=== PATIENT | male | born 1960 | race Caucasian/White ===

== ENCOUNTER 2021-07-17 10:49 | Emergency (ER) | payer MEDICAID ==
[~2021-07-17] VITALS: Ht 200.7 cm; Wt 104.5 kg
[2021-07-17 11:28] VITALS: BP 132/94
[2021-07-17] MEDS ORDERED: DEXA6TAB6 PO (13:24)
[2021-07-17] MEDS ORDERED: IVER3TAB2 PO (13:33)
[2021-07-17] MEDS ORDERED: AZIT-31 PO (13:33)
== END 2021-07-17 13:20 | disposition home or self-care (01) ==
LOC: ER 10:50
DX: U07.1 COVID-19 (principal); R06.02 Shortness of breath; R05 Cough; R09.89 Other specified symptoms and signs involving the circulatory and respiratory systems; Z79.899 Other long term (current) drug therapy
CPT/HCPCS: 71045; 87635; 99284; C9803

== ENCOUNTER 2022-05-20 09:59 | Inpatient (IN) | payer MEDICAID ==
[~2022-05-20] VITALS: Ht 185.4 cm; Wt 96.6 kg
[~2022-05-20 09:59] MED LIST: DEXA6TAB6 PO; IVER3TAB2 PO
[2022-05-20] MEDS ORDERED: diltiazem 5mg/ml 5ml inj. IV ONE (10:25)
--- NOTE | 2022-05-20 10:50 | NUR ---
5mg of 20mg dose of cardizem given, patient had blood pressure change from SBP of 105 to 98. MD made aware, discussed slow administration of cardizem and hold off on drip. Fluids not ordered due to pt known EF of 2% and 500mL already given [employer]ER.
[2022-05-20 11:13] LABS: BASOPHILS % (AUTO) 0.2 % (0-1); EOSINOPHILS % (AUTO) 0 % (0-6); HEMOGLOBIN 13.2 g/dl (14.0-17.9); LYMPHOCYTES % (AUTO) 4.8 % (21-51); MEAN CORPUSCULAR HEMOGLOBIN 30.2 PG (27.0-31.0); MEAN CORPUSCULAR HGB CONC 33.8 g/dL (33.0-36.5); MEAN CORPUSCULAR VOLUME 89.4 FL (78-98); MEAN PLATELET VOLUME 9.1 FL (7.4-10.4); MONOCYTES # (AUTO) 1.3 X10'3 (0-0.9); MONOCYTES % (AUTO) 6.3 % (2-12); NEUTROPHILS # (AUTO) 18.5 X10'3 (1.8-7.7); NEUTROPHILS % (AUTO) 88.7 % (42-75); PLATELET COUNT 302 X10'3 (140-440); RED BLOOD COUNT 4.36 X10'6 (4.70-6.10); RED CELL DISTRIBUTION WIDTH 13.1 % (11.5-14.5); WHITE BLOOD COUNT 20.9 X10'3 (4.5-11.0)
[2022-05-20 11:30] LABS: ALANINE AMINOTRANSFERASE 13 U/L (12-78); ALBUMIN 2.4 G/DL (3.4-5.0); ALBUMIN/GLOBULIN RATIO 0.4 (1.1-1.5); ALKALINE PHOSPHATASE 66 IU/L (46-116); ANION GAP 10 (8-16); ASPARTATE AMINO TRANSFERASE 13 U/L (10-37); BILIRUBIN,TOTAL 1.1 MG/DL (0.1-1.0); BLOOD UREA NITROGEN 27 MG/DL (7-18); BUN/CREATININE RATIO 16.4 (5.4-32.0); CALCIUM 8.2 MG/DL (8.5-10.1); CHLORIDE 97 MMOL/L (99-107); CREATININE 1.65 MG/DL (0.60-1.10); GLUCOSE 249 MG/DL (70-104); POTASSIUM 4.1 MMOL/L (3.5-5.1); SODIUM 133 MMOL/L (135-145); TOTAL CARBON DIOXIDE 25.6 MMOL/L (24-32); TOTAL PROTEIN 7.8 G/DL (6.4-8.2); eGFR 43 ML/MIN
[2022-05-20] MEDS: diltiazem-NS 100mg/100ml 100 ML IV SCH (12:10)
[2022-05-20] MEDS ORDERED: ondansetron/PF 4mg/2ml inj IV PRN (16:00)
[2022-05-20] MEDS ORDERED: potassium CL 10mEq/100ml bag 100 ML IV PRN (16:00)
[2022-05-20] MEDS ORDERED: mag hydrox/Alum hydrox/simeth 30ml oral suspension PO PRN (16:00)
[2022-05-20] MEDS ORDERED: magnesium 2GM in 50ml NS 50 ML IV PRN (16:00)
[2022-05-20] MEDS ORDERED: amiodarone 150mg/dext, iso-os 100 ML IV ONE (16:00)
[2022-05-20] MEDS ORDERED: magnesium 4gm in 100ml NS 100 ML IV PRN (16:00)
[2022-05-20] MEDS ORDERED: acetaminophen 325mg tablet PO PRN (16:00)
[2022-05-20] MEDS ORDERED: POTASSIUM BICARB 20meq eff tab 20 MEQ TABLET.EFF PO PRN ×2 (16:00)
[2022-05-20] MEDS ORDERED: magnesium hydroxide 30ml (MOM) UD suspension PO PRN (16:00)
[2022-05-20] MEDS ORDERED: magnesium Cl slow-release 64mg tablet PO PRN (16:00)
[2022-05-20 16:44] LABS: POTASSIUM 3.9 MMOL/L (3.5-5.1)
[2022-05-20 16:54] LABS: CLARITY,URINE CLEAR (Clear); COLOR,URINE YELLOW (Yellow); GLUCOSE, URINE 100 mg/dl (Neg); KETONES,URINE NEGATIVE (Neg); LEUKOCYTE ESTERASE ,URINE NEGATIVE (Neg); NITRITES, URINE NEGATIVE (Neg); OCCULT BLOOD,URINE NEGATIVE (Neg); PROTEIN,URINE NEGATIVE (Neg)
[2022-05-20 17:00] LABS: UA COLLECTION TYPE URINAL
[2022-05-20 17:03] LABS: URINE AMPHETAMINE SCREEN POSITIVE (Neg); URINE BARBITUATE SCREEN NEGATIVE (Neg); URINE BENZODIAZEPINES SCREEN NEGATIVE (Neg); URINE CANNABINOID SCREEN POSITIVE (Neg); URINE COCAINE SCREEN NEGATIVE (Neg); URINE METHADONE SCREEN NEGATIVE (Neg); URINE OPIATE SCREEN NEGATIVE (Neg); URINE PHENCYCLIDINE SCREEN NEGATIVE (Neg)
[2022-05-20] MEDS ORDERED: enoxaparin 30mg/0.3ml syringe SQ SCH ×2 (17:25→20:00)
[2022-05-20] MEDS ORDERED: PERFLUTREN PROTEIN-A MICROSPHR (Optison) 0.22 MG/ML 3ML VIAL IV ONE (17:30)
[2022-05-20] MEDS: docusate sod 100mg capsule PO SCH (20:00)
[2022-05-20] MEDS: K and/or MAG REPLACEMENT MC SCH (20:05)
[2022-05-20] MEDS: enoxaparin 100mg/ml syringe SQ SCH (20:33)
[2022-05-20] MEDS: carvedilol 6.25mg tablet PO SCH (20:48)
[2022-05-20] MEDS: furosemide 10 MG/1 ML 10ml inj IV SCH (20:48)
[2022-05-20] MEDS: vancomycin/NS 1 GM ADD-VANTAGE 250 ML IV SCH (21:06)
--- NOTE | 2022-05-20 21:07 | NUR ---
Amiodarone not given on previous shift as stated in nursing shift report, and Cardizem started instead.
--- NOTE | 2022-05-20 22:10 | NUR ---
Patient heard yelling from room, when I went to check on him he was upset because he could not reach his urinal and thinks we are ignoring him. He stated "I'm a , is this how you treat us"? I handed him the urinal and told him I was sorry that we were really busy tonight. He continued to yell and his nurse Rudolph went and had a talk with him.
--- NOTE | 2022-05-20 22:15 | NUR ---
Patient observed yelling at staff and becoming aggressive. Patient told this behavior would not be tolerated. Charge nurse spoke with patient as well.
[2022-05-20 23:30] VITALS: BP 108/77
[2022-05-21] VITALS (13 sets, daily range): BP systolic 90–114; BP diastolic 55–79
[2022-05-21 06:42] LABS: BASOPHILS % (AUTO) 0.2 % (0-1); EOSINOPHILS % (AUTO) 0.2 % (0-6); HEMATOCRIT 40.1 % (42.0-52.0); HEMOGLOBIN 13.4 g/dl (14.0-17.9); LYMPHOCYTES # (AUTO) 1.4 X10'3 (1.1-4.8); LYMPHOCYTES % (AUTO) 8.3 % (21-51); MEAN CORPUSCULAR HEMOGLOBIN 30.1 PG (27.0-31.0); MEAN CORPUSCULAR HGB CONC 33.5 g/dL (33.0-36.5); MEAN CORPUSCULAR VOLUME 89.7 FL (78-98); MEAN PLATELET VOLUME 8.8 FL (7.4-10.4); MONOCYTES # (AUTO) 1.3 X10'3 (0-0.9); MONOCYTES % (AUTO) 7.6 % (2-12); NEUTROPHILS # (AUTO) 13.9 X10'3 (1.8-7.7); NEUTROPHILS % (AUTO) 83.7 % (42-75); PLATELET COUNT 294 X10'3 (140-440); RED BLOOD COUNT 4.47 X10'6 (4.70-6.10); RED CELL DISTRIBUTION WIDTH 13.1 % (11.5-14.5); WHITE BLOOD COUNT 16.6 X10'3 (4.5-11.0)
[2022-05-21 07:10] LABS: ALANINE AMINOTRANSFERASE 16 U/L (12-78); ALBUMIN 2.3 G/DL (3.4-5.0); ALBUMIN/GLOBULIN RATIO 0.4 (1.1-1.5); ALKALINE PHOSPHATASE 71 IU/L (46-116); ANION GAP 12 (8-16); ASPARTATE AMINO TRANSFERASE 15 U/L (10-37); BILIRUBIN,TOTAL 0.9 MG/DL (0.1-1.0); BLOOD UREA NITROGEN 31 MG/DL (7-18); BUN/CREATININE RATIO 23.8 (5.4-32.0); CALCIUM 8.2 MG/DL (8.5-10.1); CHLORIDE 99 MMOL/L (99-107); GLUCOSE 179 MG/DL (70-104); MAGNESIUM 2.2 MG/DL (1.5-2.4); POTASSIUM 4.2 MMOL/L (3.5-5.1); SODIUM 136 MMOL/L (135-145); TOTAL CARBON DIOXIDE 24.7 MMOL/L (24-32); TOTAL PROTEIN 8.2 G/DL (6.4-8.2); eGFR 57 ML/MIN
--- NOTE | 2022-05-21 07:27 | NUR ---
Patient in room PCU 3024. I have received report from KYLAH LEBRON, and had the opportunity to ask questions and assume patient care.
[2022-05-21] MEDS: K and/or MAG REPLACEMENT MC SCH ×2 (08:00→20:00)
[2022-05-21] MEDS: diltiazem-NS 100mg/100ml 100 ML IV SCH ×2 (08:34→19:33)
[2022-05-21] MEDS: carvedilol 6.25mg tablet PO SCH ×2 (08:37→22:23)
[2022-05-21] MEDS: docusate sod 100mg capsule PO SCH ×2 (08:37→22:23)
[2022-05-21] MEDS: vancomycin/NS 1 GM ADD-VANTAGE 250 ML IV SCH ×2 (08:42→22:23)
[2022-05-21] MEDS: furosemide 10 MG/1 ML 10ml inj IV SCH (08:51)
[2022-05-21] MEDS: enoxaparin 100mg/ml syringe SQ SCH (08:53)
--- NOTE | 2022-05-21 14:15 | NUR ---
PRESSURE ULCER EDUCATION: DEFINITION: A pressure ulcer is an area of skin that breaks down when you stay in one position too long. The constant pressure against the skin reduces the blood flow to that area and the affected tissue dies. CAUSES: "Being bedridden or in a wheelchair "Fragile skin "Having a chronic condition, such as diabetes or vascular disease "Inability to move certain parts of your body without assistance "Older age "Incontinence of urine or stool SYMPTOMS: "A reddened area that DOES NOT turn white when pressed on - this can be the beginning of a pressure ulcer "A blister, deep sore or a crater - these can be advanced pressure ulcers FIRST AID: "Relieve the pressure on this area "Keep the area clean and dry "Call your primary doctor if you see any of the above symptoms "DO NOT massage the area "DO NOT use a donut shaped or ring shaped pillow- these actually interfere with the blood flow and cause complications PREVENTION: "Check for pressure ulcers everyday "Change position at least every two hours to relieve pressure "Use items that help relieve pressure- pillows, sheepskin, foam padding, and powders. "Keep skin clean and dry "Eat healthy well balanced meals "Exercise daily IF YOU SEE ANY OF THESE SYMPTOMS WHILE IN THE HOSPITAL - TELL YOUR NURSE IMMEDIATELY. IF YOU SEE ANY OF THESE SYMPTOMS WHILE AT HOME OR HAVE ANY QUESTIONS OR CONCERNS ABOUT PRESSURE ULCERS - CALL YOUR PRIMARY DOCTOR IMMEDIATELY. Addendum: 05/21/22 at 1415 by Aileen Barry LVN Amended: Links added.
[2022-05-21] MEDS ORDERED: ATOR40TA71 PO (17:33)
[2022-05-21] MEDS ORDERED: CYAN100082 PO (17:33)
[2022-05-21] MEDS ORDERED: CHOL20004 PO (17:33)
[2022-05-21] MEDS ORDERED: DIGO125T97 PO (17:33)
[2022-05-21] MEDS ORDERED: FERR325T32 PO (17:54)
[2022-05-21] MEDS ORDERED: METO50TA7 PO (17:54)
[2022-05-21] MEDS ORDERED: LISI20TA28 PO (17:54)
[2022-05-21] MEDS ORDERED: METF-436 PO (17:54)
[2022-05-21] MEDS ORDERED: MULT-1085 PO (17:54)
--- NOTE | 2022-05-21 18:19 | NUR ---
Problems reprioritized. Patient report given, questions answered & plan of care reviewed with KYLAH PINA.
[2022-05-21] MEDS: mineral oil/petrolatum, white cream 113gm jar TP SCH (20:00)
[2022-05-21] MEDS: furosemide 20 MG/2 ML vial IV SCH (22:24)
[2022-05-22 02:00] VITALS: BP 88/67
[2022-05-22 06:00] VITALS: BP 104/72
--- NOTE | 2022-05-22 06:30 | NUR ---
Patient in room PCU 3024. I have received report from KYLAH LEBRON, and had the opportunity to ask questions and assume patient care.
[2022-05-22 06:36] LABS: BASOPHILS % (AUTO) 0.3 % (0-1); EOSINOPHILS % (AUTO) 0.2 % (0-6); LYMPHOCYTES # (AUTO) 1.5 X10'3 (1.1-4.8); LYMPHOCYTES % (AUTO) 11.3 % (21-51); MEAN CORPUSCULAR HEMOGLOBIN 29.4 PG (27.0-31.0); MEAN CORPUSCULAR HGB CONC 33.3 g/dL (33.0-36.5); MEAN CORPUSCULAR VOLUME 88.3 FL (78-98); MEAN PLATELET VOLUME 9.5 FL (7.4-10.4); MONOCYTES # (AUTO) 1.3 X10'3 (0-0.9); MONOCYTES % (AUTO) 9.4 % (2-12); NEUTROPHILS # (AUTO) 10.6 X10'3 (1.8-7.7); NEUTROPHILS % (AUTO) 78.8 % (42-75); PLATELET COUNT 282 X10'3 (140-440); RED BLOOD COUNT 4.08 X10'6 (4.70-6.10); RED CELL DISTRIBUTION WIDTH 13.3 % (11.5-14.5); WHITE BLOOD COUNT 13.4 X10'3 (4.5-11.0)
[2022-05-22 07:01] LABS: ALANINE AMINOTRANSFERASE 14 U/L (12-78); ALBUMIN/GLOBULIN RATIO 0.4 (1.1-1.5); ALKALINE PHOSPHATASE 67 IU/L (46-116); ANION GAP 11 (8-16); ASPARTATE AMINO TRANSFERASE 13 U/L (10-37); BILIRUBIN,TOTAL 0.5 MG/DL (0.1-1.0); BLOOD UREA NITROGEN 37 MG/DL (7-18); BUN/CREATININE RATIO 29.4 (5.4-32.0); CALCIUM 8.1 MG/DL (8.5-10.1); CHLORIDE 98 MMOL/L (99-107); CREATININE 1.26 MG/DL (0.60-1.10); GLUCOSE 213 MG/DL (70-104); MAGNESIUM 2.1 MG/DL (1.5-2.4); POTASSIUM 3.9 MMOL/L (3.5-5.1); SODIUM 133 MMOL/L (135-145); TOTAL CARBON DIOXIDE 24.3 MMOL/L (24-32); TOTAL PROTEIN 7.6 G/DL (6.4-8.2); eGFR 59 ML/MIN
[2022-05-22] MEDS: mineral oil/petrolatum, white cream 113gm jar TP SCH ×2 (08:00→20:00)
[2022-05-22] MEDS: K and/or MAG REPLACEMENT MC SCH ×2 (08:00→20:00)
[2022-05-22] MEDS: docusate sod 100mg capsule PO SCH ×2 (08:00→20:00)
[2022-05-22] MEDS: vancomycin/NS 1 GM ADD-VANTAGE 250 ML IV SCH ×2 (09:10→20:44)
[2022-05-22] MEDS: lisinopril 20mg tablet PO SCH (09:11)
[2022-05-22] MEDS: ferrous sulfate 325mg tablet PO SCH (09:12)
[2022-05-22] MEDS: multivitamins, therapeutics tablet PO SCH (09:12)
[2022-05-22] MEDS: cyanocobalamin 500mcg tablet PO SCH (09:13)
[2022-05-22] MEDS: atorvastatin 20mg tablet PO SCH (09:14)
[2022-05-22] MEDS: digoxin 125mcg (0.125mg) tablet PO SCH (09:14)
[2022-05-22] MEDS: metoprolol succinate 25mg (24-HOUR) SR. Tablet PO SCH ×2 (09:15→21:08)
[2022-05-22] MEDS: cholecalciferol (vitamin D3) 1,000 unit (25mcg) tablet PO SCH (09:15)
[2022-05-22] MEDS: enoxaparin 100mg/ml syringe SQ SCH (09:16)
[2022-05-22] MEDS: furosemide 20 MG/2 ML vial IV SCH ×2 (09:17→20:43)
[2022-05-22 11:00] VITALS: BP 114/64
--- NOTE | 2022-05-22 14:21 | NUR ---
Nury JERRY recommendations for Blood Glucose monitoring. NO accuchecks ordered. Paged MD and orders received. Accu Checks ac/hs with no coverage at this time.
[2022-05-22 15:00] VITALS: BP 115/65
[2022-05-22 18:00] VITALS: BP 114/76
[2022-05-22 18:56] LABS: APTT 26 SECONDS (22-32)
[2022-05-22] MEDS ORDERED: VANCOMYCIN LEVEL IV ONE (20:30)
[2022-05-22 22:00] VITALS: BP 114/78
[2022-05-23 02:00] VITALS: BP 92/64
[2022-05-23 06:22] LABS: BASOPHILS % (AUTO) 0.2 % (0-1); EOSINOPHILS # (AUTO) 0.1 X10'3 (0-0.9); EOSINOPHILS % (AUTO) 0.6 % (0-6); HEMATOCRIT 36.1 % (42.0-52.0); LYMPHOCYTES # (AUTO) 1.2 X10'3 (1.1-4.8); LYMPHOCYTES % (AUTO) 10.7 % (21-51); MEAN CORPUSCULAR HEMOGLOBIN 29.3 PG (27.0-31.0); MEAN CORPUSCULAR HGB CONC 33.2 g/dL (33.0-36.5); MEAN CORPUSCULAR VOLUME 88.2 FL (78-98); MEAN PLATELET VOLUME 8.8 FL (7.4-10.4); MONOCYTES % (AUTO) 9.4 % (2-12); NEUTROPHILS # (AUTO) 8.9 X10'3 (1.8-7.7); NEUTROPHILS % (AUTO) 79.1 % (42-75); PLATELET COUNT 285 X10'3 (140-440); RED BLOOD COUNT 4.09 X10'6 (4.70-6.10); RED CELL DISTRIBUTION WIDTH 13.3 % (11.5-14.5); WHITE BLOOD COUNT 11.2 X10'3 (4.5-11.0)
[2022-05-23 06:46] LABS: ALANINE AMINOTRANSFERASE 14 U/L (12-78); ALBUMIN 1.9 G/DL (3.4-5.0); ALBUMIN/GLOBULIN RATIO 0.3 (1.1-1.5); ALKALINE PHOSPHATASE 70 IU/L (46-116); ANION GAP 11 (8-16); ASPARTATE AMINO TRANSFERASE 16 U/L (10-37); BILIRUBIN,TOTAL 0.5 MG/DL (0.1-1.0); BLOOD UREA NITROGEN 30 MG/DL (7-18); BUN/CREATININE RATIO 26.5 (5.4-32.0); CALCIUM 7.9 MG/DL (8.5-10.1); CHLORIDE 100 MMOL/L (99-107); CREATININE 1.13 MG/DL (0.60-1.10); GLUCOSE 198 MG/DL (70-104); MAGNESIUM 1.9 MG/DL (1.5-2.4); SODIUM 138 MMOL/L (135-145); TOTAL CARBON DIOXIDE 26.6 MMOL/L (24-32); TOTAL PROTEIN 7.6 G/DL (6.4-8.2); eGFR 66 ML/MIN
--- NOTE | 2022-05-23 07:48 | NUR ---
Pagecorey JERRY regarding BG..."Good Morning. PT Jese BG have all been elevated, Do you want to restart home dose of Metformin (2000mg po daily) per records. PLease advise. Aileen Venu ext [phone]", awaiting response.
[2022-05-23] MEDS: K and/or MAG REPLACEMENT MC SCH (08:00)
[2022-05-23] MEDS: mineral oil/petrolatum, white cream 113gm jar TP SCH (08:00)
[2022-05-23] MEDS: furosemide 20 MG/2 ML vial IV SCH (08:40)
[2022-05-23] MEDS: enoxaparin 100mg/ml syringe SQ SCH (08:40)
[2022-05-23] MEDS: cholecalciferol (vitamin D3) 1,000 unit (25mcg) tablet PO SCH (08:41)
[2022-05-23] MEDS: cyanocobalamin 500mcg tablet PO SCH (08:41)
[2022-05-23] MEDS: digoxin 125mcg (0.125mg) tablet PO SCH (08:41)
[2022-05-23] MEDS: docusate sod 100mg capsule PO SCH (08:41)
[2022-05-23] MEDS: ferrous sulfate 325mg tablet PO SCH (08:42)
[2022-05-23] MEDS: lisinopril 20mg tablet PO SCH (08:42)
[2022-05-23] MEDS: multivitamins, therapeutics tablet PO SCH (08:42)
[2022-05-23] MEDS: metoprolol succinate 25mg (24-HOUR) SR. Tablet PO SCH (08:42)
[2022-05-23] MEDS: atorvastatin 20mg tablet PO SCH (08:42)
--- NOTE | 2022-05-23 09:57 | NUR ---
DM Consult: Pt hx T2DM Glu 198-285mg/dl at this time though not on glycemic coverage yet this admit also without A1C per EMR. RN paged regarding restarting home metformin dose per EMR. RD d/w RN regarding A1C this admit; DM ed postponed pending A1C results as no prior A1C hx in EMR. Addendum: 05/23/22 at [address] Amended: Links added.
[2022-05-23 10:33] VITALS: BP 122/82
[2022-05-23 11:00] VITALS: BP 108/74
[2022-05-23] MEDS ORDERED: DOXY100C2 PO (11:41)
[2022-05-23] MEDS ORDERED: FURO-149 PO (11:41)
[2022-05-23] MEDS ORDERED: POTA-207 PO (11:41)
[2022-05-23] MEDS ORDERED: CEPH-585 PO (11:41)
--- NOTE | 2022-05-23 12:49 | NUR ---
Pt with "Cellulitis" to left lower extremity. Dressing changed today by electrical control assembler. Picture not taken. Addendum: 05/23/22 at 1250 by Aileen Blackman RN Amended: Links added.
[2022-05-23 13:06] LABS: HEMOGLOBIN A1C 8.7 % (4.5-6.2)
--- NOTE | 2022-05-23 14:14 | NUR ---
Pt states understanding of discharge instructions. [facility]. IV's discontinued tip intact times 2. Escorted to car via WC by RN.
--- NOTE | 2022-05-23 14:18 | NUR ---
WOUND INFECTION EDUCATION PROVIDED BY WOUND CARE 1. Patient instructed to call their primary doctor, or go the ED immediately if any of the following symptoms occur: * Increased pain in wound * Increase in drainage from the wound * Redness in the skin surrounding the wound * Warmth in the skin surrounding the wound * Bleeding from the wound * Temperature of 101 or greater 2. If any of these occur while in the hospital tell a nurse immediately. Addendum: 05/23/22 at 1418 by Aileen Barry LVN Amended: Links added.
[2022-05-24] MEDS ORDERED: VANCOMYCIN LEVEL IV ONE (20:30)
== END 2022-05-23 14:08 | disposition home health service (06) | DRG 201 ==
LOC: ER 09:59 → ED HOLD 16:00 → PCU 3S 23:20
PROVIDERS: ADMIT Family Medicine; ATTEND Family Medicine
DX: I48.91 Unspecified atrial fibrillation (principal); I50.23 Acute on chronic systolic (congestive) heart failure; I42.7 Cardiomyopathy due to drug and external agent; I11.0 Hypertensive heart disease with heart failure; I95.9 Hypotension, unspecified; L03.116 Cellulitis of left lower limb; E11.621 Type 2 diabetes mellitus with foot ulcer; L97.529 Non-pressure chronic ulcer of other part of left foot with unspecified severity; F12.90 Cannabis use, unspecified, uncomplicated; F10.10 Alcohol abuse, uncomplicated; R00.0 Tachycardia, unspecified; F17.210 Nicotine dependence, cigarettes, uncomplicated; E11.65 Type 2 diabetes mellitus with hyperglycemia; F15.10 Other stimulant abuse, uncomplicated; Z91.19 Patient's noncompliance with other medical treatment and regimen; Z79.899 Other long term (current) drug therapy; Z71.51 Drug abuse counseling and surveillance of drug abuser; Z71.6 Tobacco abuse counseling
CPT/HCPCS: 36415; 71045; 80053; 80202; 80305; 81003; 82948; 83036; 83605; 83735; 83880; 84132; 84145; 84484; 85025; 85730; 87040; 87081; 93306; 96374; 99285; A4649; A6196; A6446; A6449; G0378; J1650; J1940; J3370; J3490; J7040

== ENCOUNTER 2023-04-29 09:22 | Day surgery (SDC) | payer MEDICAID ==
[2023-04-29] VITALS (7 sets, daily range): BP systolic 101–154; BP diastolic 53–77
[~2023-04-29] VITALS: Ht 172.7 cm; Wt 79.4 kg
[~2023-04-29 09:22] MED LIST changes: +ATOR40TA71 PO; +CHOL20004 PO; +CYAN100082 PO; -DEXA6TAB6 PO; +DIGO125T97 PO; +FERR325T32 PO; +FURO-149 PO; -IVER3TAB2 PO; +LISI20TA28 PO; +METF-436 PO; +METO50TA7 PO; +MULT-1085 PO
[2023-04-29] MEDS ORDERED: LIDOcaine 1% 30ml preserv. free vial ONE (09:41)
[2023-04-29] MEDS ORDERED: METH-806 PO (09:51)
[2023-04-29] MEDS ORDERED: APIX5TAB3 PO (09:51)
[2023-04-29] MEDS ORDERED: LEVO25TA7 PO (09:55)
[2023-04-29] MEDS ORDERED: FOLI0.8T19 PO (09:55)
[2023-04-29] MEDS ORDERED: LORA10TA7 PO (09:55)
[2023-04-29] MEDS ORDERED: THIA100T73 PO (09:55)
[2023-04-29] MEDS ORDERED: PANT-47 PO (09:55)
== END 2023-04-29 13:25 ==
LOC: SSTAY O 09:22
PROVIDERS: ATTEND Radiology Diagnostic Radiology
DX: Z49.01 Encounter for fitting and adjustment of extracorporeal dialysis catheter (principal); M46.22 Osteomyelitis of vertebra, cervical region; N18.9 Chronic kidney disease, unspecified; Z79.899 Other long term (current) drug therapy; Z79.01 Long term (current) use of anticoagulants; Z98.890 Other specified postprocedural states; Z80.2 Family history of malignant neoplasm of other respiratory and intrathoracic organs
CPT/HCPCS: 36589; J3490; A4615; A6449; J7030

== ENCOUNTER 2024-12-30 06:44 | Observation (INO) | payer MEDICAID, OTHER ==
[2024-12-26 15:17] LABS: BASOPHILS % (AUTO) 0.6 % (0-1); EOSINOPHILS # (AUTO) 0.2 X10'3 (0-0.9); EOSINOPHILS % (AUTO) 3.4 % (0-6); LYMPHOCYTES # (AUTO) 0.8 X10'3 (1.1-4.8); LYMPHOCYTES % (AUTO) 17.9 % (21-51); MEAN CORPUSCULAR HEMOGLOBIN 31.3 PG (27.0-31.0); MEAN CORPUSCULAR HGB CONC 33.3 g/dL (33.0-36.5); MEAN CORPUSCULAR VOLUME 94.1 FL (78-98); MEAN PLATELET VOLUME 9.4 FL (7.4-10.4); MONOCYTES # (AUTO) 0.3 X10'3 (0-0.9); MONOCYTES % (AUTO) 5.9 % (2-12); NEUTROPHILS # (AUTO) 3.3 X10'3 (1.8-7.7); NEUTROPHILS % (AUTO) 72.2 % (42-75); PRE OP PLATELET COUNT 112 X10'3 (140-440); PRE OP WHITE BLOOD COUNT 4.6 10'3 (4.8-10.8); RED BLOOD COUNT 4.14 X10'6 (4.70-6.10); RED CELL DISTRIBUTION WIDTH 14.3 % (11.5-14.5)
[2024-12-26 15:18] LABS: BILIRUBIN,URINE NEGATIVE (Neg); CLARITY,URINE CLEAR (Clear); COLOR,URINE YELLOW (Yellow); GLUCOSE, URINE >=1000 mg/dl (Neg); KETONES,URINE NEGATIVE (Neg); LEUKOCYTE ESTERASE ,URINE NEGATIVE (Neg); NITRITES, URINE NEGATIVE (Neg); OCCULT BLOOD,URINE TRACE-INTACT (Neg); PROTEIN,URINE NEGATIVE (Neg); UROBILINOGEN,URINE 0.2 E.U/dL (0.2-1.0)
[2024-12-26 15:19] LABS: UA COLLECTION TYPE CLN CATCH MIDSTREAM
[2024-12-26 15:28] LABS: ALBUMIN 3.7 G/DL (3.4-5.0); ALBUMIN/GLOBULIN RATIO 0.9 (1.1-1.5); ALKALINE PHOSPHATASE 91 IU/L (46-116); BLOOD UREA NITROGEN 19 MG/DL (7-18); BUN/CREATININE RATIO 15.3 (10.0-20.0); CALCIUM 8.9 MG/DL (8.5-10.1); CHLORIDE 109 MMOL/L (99-107); CREATININE 1.24 MG/DL (0.60-1.10); PRE OP ALT 60 U/L (30-65); PRE OP ANION GAP 6 (8-16); PRE OP AST 29 U/L (10-37); PRE OP BILIRUB, TOTAL 0.5 MG/DL (0.0-1.0); PRE OP POTASSIUM 4.4 MMOL/L (3.4-5.1); PRE OP SODIUM 145 MMOL/L (135-145); TOTAL CARBON DIOXIDE 30.2 MMOL/L (24-32); eGFR 59 ML/MIN
[2024-12-26 15:32] LABS: WBC,URINE NONE SEEN /HPF (0-4)
[2024-12-26 15:32] LABS: PRE OP GLUCOSE 351 MG/DL (70-104)
[2024-12-26 15:33] LABS: BACTERIA,URINE NONE SEEN /HPF (Neg); MUCUS STRANDS NONE SEEN /LPF (Neg); RBC,URINE 0-2 /HPF (0-2); SQUAMOUS EPITHELIAL CELL,UR FEW /LPF (FEW)
[~2024-12-30] VITALS: Ht 185.4 cm; Wt 92.0 kg
[2024-12-30] VITALS (28 sets, daily range): BP systolic 128–172; BP diastolic 64–110; PULSE 75–101; RESP 16–22; TEMP 97.3–98.1; O2SAT 83–100
[2024-12-30] MEDS: ceFAZolin 2gm in dextrose, iso 50 ML IV ONE (05:30)
[~2024-12-30 06:44] MED LIST changes: +AMLO5TAB PO; +APIX5TAB3 PO; +ATOR-2 PO; -ATOR40TA71 PO; +BUPIVAcaine 2.5mg/ml inj 50ml vial (contains preservative) ONE; -CHOL20004 PO; -CYAN100082 PO; +EZET10TA48 PO; -FERR325T32 PO; -FURO-149 PO; +LEVO150C4 PO; -LISI20TA28 PO; +LOSA-416 PO; -METF-436 PO; +METF-438 PO; -METO50TA7 PO; -MULT-1085 PO; +bacitracin 15gm ointment TP ONE
[2024-12-30] MEDS: ringers solution, lacted 1,000 ML IV SCH ×2 (07:25→09:45)
[2024-12-30] MEDS: famotidine 20mg tablet PO ONE (07:25)
[2024-12-30] MEDS: insulin regular, human 10 units/0.1 ml syringe IV ONE (08:25)
[2024-12-30] MEDS ORDERED: cloNIDine hcl/PF 100mcg/ml inj ONE (08:32)
[2024-12-30] MEDS ORDERED: sevoflurane 250ml liquid IH ONE (08:36)
[2024-12-30] MEDS ORDERED: midazolam 1 mg/ML 2ml injection ONE (08:41)
[2024-12-30] MEDS ORDERED: fentaNYL/PF 50MCG/1 ML 2ML syringe ONE (08:41)
[2024-12-30] MEDS ORDERED: dexamethasone sod phosphate 4mg/ml inj. ONE (09:18)
[2024-12-30] MEDS ORDERED: ePHEDrine 50MG/ML INJ. ONE (09:18)
[2024-12-30] MEDS ORDERED: 0.9 % SODIUM CHLORIDE 10 ML VIAL ONE ×2 (09:18)
[2024-12-30] MEDS ORDERED: propofol inj 20 ML IV ONE (09:18)
[2024-12-30] MEDS ORDERED: ROPIVAcaine 0.5% (5mg/ml) 30ml vial ONE (09:18)
[2024-12-30] MEDS ORDERED: LIDOcaine 2% (20mg/ml) 5ml vial ONE (09:18)
[2024-12-30] MEDS ORDERED: ondansetron/PF 4mg/2ml inj ONE (09:19)
[2024-12-30] MEDS ORDERED: morphine 2 MG/ML inj. syringe IV PRN (09:45)
[2024-12-30] MEDS ORDERED: morphine 4 MG/ML inj SYRINge IV PRN (09:45)
[2024-12-30] MEDS ORDERED: ondansetron/PF 4mg/2ml inj IV PRN (09:45)
[2024-12-30] MEDS ORDERED: proCHLORperazine 10 MG/2 ml inj IV PRN (09:45)
[2024-12-30] MEDS ORDERED: acetaminophen 1,000mg/100ml IV 100 ML IV PRN (09:45)
[2024-12-30] MEDS ORDERED: meperidine/PF 25mg/ml syringe IV PRN ×3 (09:45)
[2024-12-30] MEDS ORDERED: hydrALAZINE 20mg/ml inj. IV PRN (09:45)
[2024-12-30] MEDS ORDERED: labetalol 20mg/4ml (5mg/ml) syringe IV PRN (09:45)
[2024-12-30] MEDS ORDERED: magnesium hydroxide 30ml (MOM) UD suspension PO PRN (09:50)
[2024-12-30] MEDS ORDERED: naloxone 0.4 mg/ml inj IV PRN (09:50)
[2024-12-30] MEDS ORDERED: diphenhydrAMINE 25mg capsule PO PRN ×2 (09:50)
[2024-12-30] MEDS ORDERED: bisacodyl 10mg suppository rectal RC PRN (09:50)
[2024-12-30] MEDS ORDERED: dextrose 50%-water 50ml dispensing syringe IV PRN ×2 (13:30)
[2024-12-30] MEDS ORDERED: glucagon, human recombinant 1mg kit SUBCUT PRN (13:30)
[2024-12-30] MEDS ORDERED: DEXTROSE 15 GM of carb/4 tabs (each vial/BOTTLE has 4 tablets) PO PRN ×2 (13:30)
[2024-12-30] MEDS: INSULIN LISPRO 100 UNIT/ML INSULN.PEN MULTI-DOSE SQ SCH (18:37)
[2024-12-30] MEDS: hydrALAZINE 20mg/ml inj. IV PRN (18:50)
[2024-12-30] MEDS: metFORMIN 500mg tablet PO SCH (21:52)
[2024-12-30] MEDS: sennosides 8.6mg tablet PO SCH (21:52)
[2024-12-30] MEDS: potassium cl 20mEq in 1/2 NS 1,000 ML IV SCH (22:00)
[2024-12-31] MEDS: acetaminophen 325mg tablet PO PRN (00:17)
[2024-12-31 02:00] VITALS: BP 162/94; PULSE 85; RESP 18; TEMP 97.5; O2SAT 98
[2024-12-31 06:00] VITALS: BP 132/83; PULSE 79; RESP 19; TEMP 98; O2SAT 100
[2024-12-31] MEDS: apixaban 5mg tablet PO SCH (08:00)
[2024-12-31] MEDS: levoTHYROXINE 75mcg tablet PO SCH (09:35)
[2024-12-31] MEDS: ezetimibe 10mg tablet PO SCH (09:35)
[2024-12-31] MEDS: amLODIPine 5mg tablet PO SCH (09:35)
[2024-12-31] MEDS: losartan 50mg tablet PO SCH (09:35)
[2024-12-31] MEDS: digoxin 125mcg (0.125mg) tablet PO SCH (09:38)
[2024-12-31 09:45] VITALS: RESP 16; O2SAT 95
[2024-12-31] MEDS: atorvastatin 20mg tablet PO SCH (09:58)
[2024-12-31 10:00] VITALS: BP 156/93; PULSE 87; RESP 16; TEMP 97.7; O2SAT 95
[2024-12-31 11:42] LABS: EOSINOPHILS % (AUTO) 0 % (0-6); LYMPHOCYTES # (AUTO) 0.5 X10'3 (1.1-4.8); LYMPHOCYTES % (AUTO) 7.1 % (21-51); MONOCYTES # (AUTO) 0.4 X10'3 (0-0.9); NEUTROPHILS % (AUTO) 87.9 % (42-75)
[2024-12-31 11:44] LABS: BASOPHILS % (AUTO) 0 % (0-1); HEMATOCRIT 40.1 % (42.0-52.0); HEMOGLOBIN 13.2 g/dl (14.0-17.9); MEAN CORPUSCULAR HEMOGLOBIN 31.2 PG (27.0-31.0); MEAN CORPUSCULAR VOLUME 94.7 FL (78-98); MEAN PLATELET VOLUME 9.9 FL (7.4-10.4); NEUTROPHILS # (AUTO) 6.5 X10'3 (1.8-7.7); PLATELET COUNT 116 X10'3 (140-440); RED BLOOD COUNT 4.24 X10'6 (4.70-6.10); RED CELL DISTRIBUTION WIDTH 14.4 % (11.5-14.5); WHITE BLOOD COUNT 7.4 X10'3 (4.5-11.0)
[2024-12-31 11:55] LABS: ALANINE AMINOTRANSFERASE 39 U/L (12-78); ALBUMIN 3.4 G/DL (3.4-5.0); ALBUMIN/GLOBULIN RATIO 0.8 (1.1-1.5); ALKALINE PHOSPHATASE 85 IU/L (46-116); ANION GAP 12 (8-16); ASPARTATE AMINO TRANSFERASE 21 U/L (10-37); BILIRUBIN,TOTAL 0.5 MG/DL (0.1-1.0); BLOOD UREA NITROGEN 27 MG/DL (7-18); BUN/CREATININE RATIO 19.3 (10.0-20.0); CALCIUM 8.1 MG/DL (8.5-10.1); CHLORIDE 100 MMOL/L (99-107); GLUCOSE 217 MG/DL (70-104); POTASSIUM 4.2 MMOL/L (3.5-5.1); SODIUM 134 MMOL/L (135-145); TOTAL CARBON DIOXIDE 22.4 MMOL/L (24-32); TOTAL PROTEIN 7.7 G/DL (6.4-8.2); eCRCL 62 ML/MIN; eGFR 51 ML/MIN
== END 2024-12-31 15:30 | disposition home or self-care (01) ==
LOC: PAS 06:44 → ORTHO 4S 09:54
PROVIDERS: ADMIT Podiatrist Foot & Ankle Surgery; ATTEND Podiatrist Foot & Ankle Surgery
DX: S91.309A Unspecified open wound, unspecified foot, initial encounter (principal); M24.575 Contracture, left foot; M25.375 Other instability, left foot; M89.9 Disorder of bone, unspecified; M72.2 Plantar fascial fibromatosis; Z79.899 Other long term (current) drug therapy; Z98.890 Other specified postprocedural states; X58.XXXA Exposure to other specified factors, initial encounter; Y93.89 Activity, other specified; Y92.89 Other specified places as the place of occurrence of the external cause; Y99.8 Other external cause status
CPT/HCPCS: 27685; 28122; 36415; 80053; 81001; 82948; 83036; 84145; 85025; 87081; 96374; 96375; 97116; 97161; 97530; A6222; G0378; J0360; J0690; J0735; J1100; J1815; J2003; J2250; J2405; J2704; J2795; J3010; J3480; J3490; J7120; A4215; A4618; A6253; A6449; A7000